=== PATIENT | female | born 1975 | race Caucasian/White ===

== ENCOUNTER → 2016-11-15 | Outpatient (CLI) | payer OTHER ==
[~2016-11-15] MED LIST: ACHD5005 PO; B12/1TAB3 PO; CALC300T4 PO; CETI10CA PO; CHOL400T43 PO; CINN500C2 PO; CYCL5TAB PO; ESTR-42 TD; ESTR-44 TD; ESTR1TAB27 PO; HYDR-3812 PO; IBUP-1780 PO; IBUP-30 PO; KRIL1CAP12 PO; LEVO75TA PO; LORA10TA7 PO; LVT.05T PO; METH4TAB PO; ONDA8TAB13 PO; PANT40TA PO; PANT40TA2 PO; PRD20T PO; PRM25T PO; SCR1T PO; SCR1T1 PO; SUCR1TAB36 PO; TRAM50TA2 PO; [UNRECOGNIZED DRUG - OTHER] PO
== END ==
LOC: RAD 14:43
PROVIDERS: ATTEND Obstetrics & Gynecology
DX: Z12.31 Encounter for screening mammogram for malignant neoplasm of breast (principal)
CPT/HCPCS: 77067

== ENCOUNTER → 2016-12-05 | Outpatient (CLI) | payer OTHER ==
--- NOTE | 2016-12-05 20:23 | Diagnostic Imaging Report ---
EXAMINATION: Ultrasound of the left breast. INDICATION: Abnormal mammogram. FINDINGS: The screening mammogram performed on 11/15/2016 noted a 6 mm oval asymmetry in the medial aspect of the left breast. The diagnostic mammogram performed earlier today indicated that this nodule had a generally benign appearance. It did appear to be located in the 11 o'clock position near the left breast implant. On this exam, there is a 0.7 x 0.6 x 0.7 cm fairly well-circumscribed hypoechoic lesion in this region. This does contain a small amount of vascularity and I suspect that this is solid. Most likely, this is a benign process. The possibility that this is malignant should still be considered, however. If a tissue diagnosis is desired, then an ultrasound-guided biopsy could be performed although it would be technically difficult due to the close proximity of the nodule to the implant. If further imaging is desired, then MRI will be recommended. If there is no intervention at this time and the MRI exam is not performed, then a short-term (three-month) follow-up ultrasound exam should be obtained. IMPRESSION: 1. There is a small hypoechoic nodule in the 11 o'clock position of the left breast near the implant. This finding does not have an aggressive appearance but is technically indeterminate. Recommendations as above. 2. These results were discussed with Dr. Alessandra Bagley. ACR BI-RADS Category 4: Suspicious abnormality. Dictated by: Dictated on workstation # [id number]
--- NOTE | 2016-12-07 07:21 | Diagnostic Imaging Report ---
EXAMINATION: Unilateral diagnostic left mammogram. INDICATION: Abnormal screening mammogram The current study was also evaluated with a Computer Aided Detection (CAD) system. The recent screening mammogram of 11/15/16 noted a 6 MM oval asymmetry in the medial posterior aspect of the breast. Compression views of this area show that the density in question still persist. In reviewing the tomographic images I suspect that this finding is in the 11 o'clock position. This density has a generally benign appearance. Even so, I would recommend that ultrasound be performed for further study. IMPRESSION: The nodular density in the 11 o'clock position of the left breast has a generally benign appearance. Ultrasound would be recommended to better characterize this finding. ACR BI-RADS Category 0: Incomplete. (Needs additional imaging evaluation). Result letter will be mailed to the patient. Note: At least 10% of breast cancer is not imaged by mammography. Dictated by: Dictated on workstation # [id number]
== END ==
LOC: RAD 12:31
PROVIDERS: ATTEND Obstetrics & Gynecology
DX: N63 Unspecified lump in breast (principal); Z98.82 Breast implant status
CPT/HCPCS: 76642

== ENCOUNTER → 2016-12-24 | Outpatient (CLI) | payer OTHER ==
[~2016-12-24] VITALS: Ht 170.2 cm; Wt 93.0 kg
[~2016-12-24] MED LIST changes: +LIDOCAINE 1% INJ 20 ML (XYLOCAINE) VIAL INJ ONE; +LIDOCAINE 1% INJ 20 ML (XYLOCAINE) VIAL ONE
[2016-12-24 11:02] VITALS: BP 130/81
--- NOTE | 2016-12-24 11:14 | Diagnostic Imaging Report ---
EXAMINATION: Vacuum-assisted ultrasound-guided biopsy of breast mass left. A metallic clip placed to caryn biopsy site. INDICATION: Left breast mass. CONSENT: Informed consent was obtained from the patient. The risks, benefits, potential complications and alternatives were reviewed and all questions answered to the patient's satisfaction. FINDINGS: Ultrasound images demonstrate left breast mass at 11:00 zone, 6 CM from the nipple. PROCEDURE: After sterile preparation and draping, 1% lidocaine was utilized for local anesthesia. A vacuum-assisted biopsy device with 14-gauge needle was introduced under live ultrasound guidance into the lesion. Good needle position was documented with ultrasound images. A metallic clip was placed to caryn the site of the biopsy. A subsequent mammogram is performed and confirms the proper positioning of the clip. Multiple samples were obtained and sent to pathology. The patient tolerated the procedure well with no immediate complications. IMPRESSION: Successful ultrasound-guided biopsy of left breast mass at 11:00 zone. A metallic clip placed to caryn biopsy site. Dictated by: Dictated on workstation # [id number]
--- NOTE | 2016-12-25 13:59 | Diagnostic Imaging Report ---
EXAMINATION: CC and lateral mammographic views of the left breast were performed with implant displaced technique. INDICATION: Documentation of clip position after ultrasound-guided biopsy. FINDINGS: The clip position is documented in the medial superior aspect of the left breast matching the site of nodule seen on the prior mammogram and the previously seen nodule is not well seen, probably related to biopsy changes. IMPRESSION: Satisfactory clip position marking the biopsy site of the medial upper left breast nodule. The Pathology results are pending. Dictated by: Dictated on workstation # [id number]
== END ==
LOC: RAD 09:48
PROVIDERS: ATTEND Obstetrics & Gynecology
DX: N63 Unspecified lump in breast (principal)
CPT/HCPCS: 19083

== ENCOUNTER → 2018-07-21 | Outpatient (CLI) | payer OTHER ==
[~2018-07-21] MED LIST changes: -HYDR-3812 PO; -LIDOCAINE 1% INJ 20 ML (XYLOCAINE) VIAL INJ ONE; -LIDOCAINE 1% INJ 20 ML (XYLOCAINE) VIAL ONE
[2018-07-21 09:39] LABS: HEMOGLOBIN 12.5 G/DL (11.5-16.0); WHITE BLOOD COUNT 11.8 10^3/uL (4.3-11.0)
[2018-07-21 09:40] LABS: MEAN PLATELET VOLUME 8.6 FL (7.4-10.4); RED CELL DISTRIBUTION WIDTH 12.8 % (10.0-14.5)
[2018-07-21 09:42] LABS: ALKALINE PHOSPHATASE 100 U/L (40-136); BILIRUBIN,TOTAL 0.4 MG/DL (0.1-1.0); BUN/CREATININE RATIO 14; CALCIUM 8.7 MG/DL (8.5-10.1); CARBON DIOXIDE 22 MMOL/L (21-32); CHLORIDE 100 MMOL/L (98-107); CREATININE SERUM 0.59 MG/DL (0.60-1.30); GFR ESTIMATED > 60; GLUCOSE 115 MG/DL (70-105); SODIUM 139 MMOL/L (135-145)
[2018-07-21 09:43] LABS: ALANINE AMINOTRANSFERASE 15 U/L (0-55); ALBUMIN 3.9 GM/DL (3.2-4.5); TOTAL PROTEIN 7.1 GM/DL (6.4-8.2)
[2018-07-21 10:15] LABS: FREE T4 (FREE THYROXINE) 1.28 NG/DL (0.70-1.48)
== END ==
LOC: LAB FS 08:13
PROVIDERS: ATTEND Family Medicine
DX: Z00.00 Encounter for general adult medical examination without abnormal findings (principal); E03.9 Hypothyroidism, unspecified; E78.2 Mixed hyperlipidemia
CPT/HCPCS: 36415; 80053; 80061; 83036; 84439; 84443; 85027

== ENCOUNTER 2018-12-24 05:48 | Outpatient (CLI) | payer OTHER ==
[~2018-12-24] VITALS: Ht 170.2 cm; Wt 96.6 kg
[2018-12-24] MEDS ORDERED: PANT40TA3 PO (09:14)
[2018-12-24] MEDS ORDERED: ESTR1TAB24 PO (09:14)
[2018-12-24] MEDS ORDERED: LEVO100T7 PO (09:14)
[2018-12-24] MEDS ORDERED: SUCR1TAB PO (09:14)
[2018-12-24] MEDS ORDERED: ATOR10TA66 PO (09:14)
[2018-12-24] MEDS ORDERED: HYDR-700 PO (09:14)
== END 2018-12-24 09:15 | disposition home or self-care (01) ==
LOC: PREOP 05:48
PROVIDERS: ATTEND Surgery
DX: Z01.818 Encounter for other preprocedural examination (principal)

== ENCOUNTER → 2019-01-27 | Outpatient (CLI) | payer OTHER ==
[~2019-01-27] MED LIST changes: +ATOR10TA66 PO; +ESTR1TAB24 PO; +HYDR-700 PO; +LEVO100T7 PO; +PANT40TA3 PO; +SUCR1TAB PO
--- NOTE | 2019-01-27 16:10 | Diagnostic Imaging Report ---
PROCEDURE: CT abdomen and pelvis without contrast. TECHNIQUE: Multiple contiguous axial images were obtained through the abdomen and pelvis without the use of intravenous contrast. Auto Exposure Controls were utilized during the CT exam to meet ALARA standards for radiation dose reduction. INDICATION: Mid and upper abdominal pain. COMPARISON: Correlation is made with prior CT from 02/17/2015. FINDINGS: The lung bases are clear. Liver parenchymal heterogeneity is again noted. There is an area of low density in the anterior portion of the liver adjacent to falciform ligament, not definitely seen on prior exam. This area measures 12 mm. Mass cannot be entirely excluded. No other liver lesions are seen. Gallbladder is surgically absent. No biliary ductal dilatation is identified. Pancreas and spleen are unremarkable. No adrenal mass is detected. No renal calculi or hydronephrosis is identified. Aorta is non-aneurysmal. Small and large bowel loops are normal caliber. There is no obstruction. Appendix is visualized and unremarkable. There is mild diverticulosis of the sigmoid but no evidence of acute diverticulitis. No free fluid or loculated fluid collection is identified. Bladder is decompressed. Uterus is absent or atrophic. IMPRESSION: 1. Liver parenchymal heterogeneity. There is a 12 mm low density in the anterior liver, segment 4B that has developed since prior CT from 2014. Further evaluation with postcontrast imaging versus liver ultrasound or liver MRI would be recommended for better characterization. 2. Otherwise unremarkable CT of the abdomen and pelvis. No acute feature is seen. There is uncomplicated diverticulosis. Dictated by: Dictated on workstation # [id number]
[2019-01-27 16:20] LABS: ALANINE AMINOTRANSFERASE 18 U/L (0-55); ALBUMIN 3.9 GM/DL (3.2-4.5); ALKALINE PHOSPHATASE 103 U/L (40-136); AMYLASE 46 U/L (25-125); BILIRUBIN,TOTAL 0.5 MG/DL (0.1-1.0); BUN/CREATININE RATIO 12; CALCIUM 9.1 MG/DL (8.5-10.1); CARBON DIOXIDE 25 MMOL/L (21-32); CHLORIDE 101 MMOL/L (98-107); CREATININE SERUM 0.69 MG/DL (0.60-1.30); GFR ESTIMATED > 60; GLUCOSE 95 MG/DL (70-105); LIPASE 15 U/L (8-78); POTASSIUM 3.7 MMOL/L (3.6-5.0); SODIUM 138 MMOL/L (135-145); TOTAL PROTEIN 7.4 GM/DL (6.4-8.2)
== END ==
LOC: RAD 15:36
PROVIDERS: ATTEND Family Medicine
DX: K57.30 Diverticulosis of large intestine without perforation or abscess without bleeding (principal); K76.89 Other specified diseases of liver
CPT/HCPCS: 36415; 74176; 80053; 82150; 83690

== ENCOUNTER → 2019-02-01 | Outpatient (CLI) | payer OTHER ==
--- NOTE | 2019-02-01 08:54 | Diagnostic Imaging Report ---
PROCEDURE: US Hepatic (Liver). TECHNIQUE: Multiple real-time grayscale images were obtained over the right upper quadrant in various projections. INDICATION: Liver lesion seen on CT Comparison made to prior CT abdomen 01/27/2019 FINDINGS: The liver measures 19.8 cm and is diffusely heterogeneous. The previously described hypodense lesion on CT is not appreciated by ultrasound. Gallbladder surgically absent. Common bile duct measures 5 mm. Pancreas is obscured by gas. Right kidney normal. There is no ascites. IMPRESSION: The previously seen liver lesion on CT was not appreciated by ultrasound. There is mild hepatomegaly, liver somewhat heterogeneous. There has also been previous cholecystectomy. Otherwise unremarkable right upper quadrant ultrasound Dictated by: Dictated on workstation # [id number]
== END ==
LOC: RAD 07:56
PROVIDERS: ATTEND Family Medicine
DX: K76.9 Liver disease, unspecified (principal); Z90.49 Acquired absence of other specified parts of digestive tract
CPT/HCPCS: 76705

== ENCOUNTER → 2019-02-15 | Outpatient (CLI) | payer OTHER | LOC: CARD 16:14 | PROVIDERS: ATTEND Nurse Practitioner Family | DX: R07.9 Chest pain, unspecified (principal) | CPT/HCPCS: 93005 ==

== ENCOUNTER → 2019-02-22 | Outpatient (CLI) | payer OTHER ==
--- NOTE | 2019-02-22 09:49 | Diagnostic Imaging Report ---
INDICATION: Hypertension. FINDINGS: The right kidney measures 12.6 x 4.4 x 5.2 cm and the left kidney measures 13.3 x 5.3 x 5.6 cm. The cortical thickness and echogenicity is normal. No calculi are identified. There is no hydronephrosis. Urinary bladder is unremarkable. No wall thickening or mass is seen. Ureteral jets are visualized. Renal Doppler evaluation was also performed. The proximal, mid and distal renal artery velocities are normal bilaterally. Renal artery to aorta ratios are normal bilaterally. No velocity elevation is identified. There is no evidence of tardus parvus waveforms to suggest renal artery stenosis. IMPRESSION: Unremarkable renal ultrasound with renal Doppler. No sonographic findings to suggest renal artery stenosis are identified. Dictated by: Dictated on workstation # [id number]
== END ==
LOC: RAD 08:02
PROVIDERS: ATTEND Family Medicine
DX: I10 Essential (primary) hypertension (principal); R31.9 Hematuria, unspecified
CPT/HCPCS: 76770; 93975

== ENCOUNTER → 2020-04-17 | Outpatient (CLI) | payer OTHER ==
[~2020-04-17] MED LIST changes: -PANT40TA3 PO; +PANT40TA52 PO
[2020-04-17 09:07] LABS: WHITE BLOOD COUNT 12.4 10^3/uL (4.3-11.0)
[2020-04-17 09:08] LABS: MEAN PLATELET VOLUME 8.6 FL (7.4-10.4)
[2020-04-17 09:27] LABS: ALANINE AMINOTRANSFERASE 14 U/L (0-55); ALKALINE PHOSPHATASE 107 U/L (40-136); BILIRUBIN,TOTAL 0.3 MG/DL (0.1-1.0); BUN/CREATININE RATIO 17; CALCIUM 9.4 MG/DL (8.5-10.1); CARBON DIOXIDE 26 MMOL/L (21-32); CHLORIDE 100 MMOL/L (98-107); CREATININE SERUM 0.65 MG/DL (0.60-1.30); GFR ESTIMATED > 60; GLUCOSE 109 MG/DL (70-105); POTASSIUM 4.2 MMOL/L (3.6-5.0); SODIUM 136 MMOL/L (135-145); TOTAL PROTEIN 7.4 GM/DL (6.4-8.2)
[2020-04-17 15:06] LABS: CHOLESTEROL 185 MG/DL (< 200); HDL CHOLESTEROL 56 MG/DL (40-60); TRIGLYCERIDES 260 MG/DL (<150); VLDL CHOLESTEROL 52 MG/DL (5-40)
[2020-04-17 15:29] LABS: FREE T4 (FREE THYROXINE) 1.09 NG/DL (0.70-1.48)
== END ==
LOC: LAB FS 08:02
PROVIDERS: ATTEND Family Medicine
DX: Z00.00 Encounter for general adult medical examination without abnormal findings (principal); E78.5 Hyperlipidemia, unspecified; E03.9 Hypothyroidism, unspecified
CPT/HCPCS: 36415; 80053; 80061; 84439; 84443; 85027

== ENCOUNTER → 2021-01-04 | Outpatient (CLI) | payer OTHER ==
--- NOTE | 2021-01-04 18:10 | Diagnostic Imaging Report ---
PROCEDURE: US Thyroid. TECHNIQUE: Multiple real-time grayscale images were obtained of the thyroid in various projections. INDICATION: Dysphagia. COMPARISON: None available. FINDINGS: Right thyroid lobe: The right thyroid lobe measures 4.1 x 1.4 x 1.2 cm. It has a background of homogeneous echogenicity and normal vascularity. In the lower pole, there is an isoechoic solid nodule with circumscribed margins measuring 0.4 x 0.3 x 0.4 cm, and this is wider than tall and has no echogenic foci (TI-RADS 3). Isthmus: The thyroid isthmus measures 0.2 cm. Left thyroid lobe: The left thyroid lobe measures 3.2 x 1.4 x 0.9 cm. A solid hyperechoic nodule in the lower pole is wider than tall measuring 0.3 x 0.2 x 0.3 cm (TI-RADS 3). IMPRESSION: 1. Bilateral tiny thyroid nodules are mildly suspicious. Given small size, consider follow-up thyroid ultrasound in one year. 2. The thyroid is not enlarged. ACR TI-RADS: TR3 . TI-RADS Recommendations:TR3 - Mildly Suspicious. FNA if > 2.5 cm. Follow if > 1.5 cm at 1, 3, 5 years. Dictated by: Dictated on workstation # [id number]
== END ==
LOC: RAD FS 11:47
PROVIDERS: ATTEND Family Medicine
DX: E04.2 Nontoxic multinodular goiter (principal)
CPT/HCPCS: 76536

== ENCOUNTER → 2021-02-26 | Outpatient (CLI) | payer OTHER | LOC: LAB FS 10:51 | PROVIDERS: ATTEND Emergency Medicine | DX: Z01.812 Encounter for preprocedural laboratory examination (principal); Z20.822 Contact with and (suspected) exposure to COVID-19 | CPT/HCPCS: 87635 ==

== ENCOUNTER → 2021-07-20 | Outpatient (CLI) | payer OTHER ==
[2021-07-20 17:22] LABS: POTASSIUM 3.7 MMOL/L (3.6-5.0)
[2021-07-20 17:23] LABS: ALBUMIN 4.1 GM/DL (3.2-4.5); BILIRUBIN,TOTAL 0.3 MG/DL (0.1-1.0); CALCIUM 9.2 MG/DL (8.5-10.1); CREATININE SERUM 0.55 MG/DL (0.60-1.30); TOTAL PROTEIN 7.1 GM/DL (6.4-8.2)
[2021-07-21 01:26] LABS: FREE T4 (FREE THYROXINE) 1.21 NG/DL (0.70-1.48)
== END ==
LOC: LAB FS 16:32
PROVIDERS: ATTEND Family Medicine
DX: E03.9 Hypothyroidism, unspecified (principal); E78.2 Mixed hyperlipidemia
CPT/HCPCS: 36415; 80053; 80061; 84439; 84443

== ENCOUNTER 2022-01-15 19:10 | Emergency (ER) | payer OTHER ==
[~2022-01-15] VITALS: Ht 170.2 cm; Wt 100.7 kg
--- NOTE | 2022-01-15 19:40 | ED Headache ---
General Chief Complaint: Head/Cervical Problems Stated Complaint: MIGRAINE,STREP THROAT,PRESSURE ON R SIDE OF FACE Nursing Triage Note: PT AMB TO RM 2 W C/O BENITEZ/MIGRAINE, DIZZINESS, NAUSEA & VOMITING, AND DECREASED APPETITE SX 0300 THIS AM. PT WAS DX W STREP THROAT ON 01/09/22. PT A&OX4, REPORTS SHE WENT TO [facility] AT 1600 TODAY AND WAS GIVEN ZOFRAN AND ADVISED TO GO TO ED FOR FURTHER EVALUATION AND TX. Source: patient Exam Limitations: no limitations History of Present Illness Date Seen by Provider: Jan 15, 2022 Time Seen by Provider: 19:40 Initial Comments This is a 46 yo female who presented to the ER via POV with c/o right sided face pain, pressure, migraine headache, dizziness, and persistent vomiting. She was diagnosed last week with strep throat and prescribed amoxicillin, her throat is much improved, and she still has doses of Amoxicillin but she has been able to take due to persistent vomiting today. She does have a history of migraine headaches, typically has a migraine daily, worse with activity. States has been unable to take her medication due to vomiting. She presented to urgent care at [facility] around 1600 today, was given Zofran and recommended to go to ER for further evaluation. Allergies and Home Medications Allergies Coded Allergies: Sulfa (Sulfonamide Antibiotics) (Verified Allergy, Unknown, EDEMA, 03/21/15) Patient Home Medication List Home Medication List Reviewed: Yes Amoxicillin/Potassium Clav (Amox Tr-K Clv 875-125 mg Tab) 875 Mg-125 Mg Tablet, 875 EACH PO BID Prescribed by: ETELVINA IYER on 01/15/222057 Atorvastatin Calcium (Atorvastatin Calcium) 10 Mg Tablet, 10 MG PO HS, (Reported) Entered as Reported by: ANT RESTREPO on 12/24/18913 Estradiol (Estradiol Tablet) 1 Mg Tablet, 1 MG PO DAILY, (Reported) Entered as Reported by: ANT RESTREPO on 12/24/18913 Hydroxyzine HCl (Hydroxyzine HCl) 25 Mg Tablet, 25 MG PO HS, (Reported) Entered as Reported by: ANT RESTREPO on 12/24/18913 Ibuprofen (Advil) 200 Mg Tablet, 400 MG PO Q8H PRN for PAIN, (Reported) Entered as Reported by: JASVIR BANUELOS on 01/17/16824 Ketorolac Tromethamine (Ketorolac Tromethamine) 10 Mg Tablet, 10 MG PO Q6H PRN for PAIN-BREAKTHROUGH Prescribed by: ETELVINA IYER on 01/15/222057 Levothyroxine Sodium (Levothyroxine Sodium) 100 Mcg Tablet, 100 MCG PO DAILY, (Reported) Entered as Reported by: ANT RESTREPO on 12/24/18913 Ondansetron (Ondansetron Odt) 4 Mg Tab.rapdis, 4 MG PO Q6H PRN for NAUSEA/VOMITING Prescribed by: ETELVINA IYER on 01/15/222057 Pantoprazole Sodium (Pantoprazole Sodium) 40 Mg Tablet.dr, 40 MG PO BID, (Reported) Entered as Reported by: ANT RESTREPO on 12/24/18913 Sucralfate (Sucralfate) 1 Gm Tablet, 1 GM PO ACHS, (Reported) Entered as Reported by: ANT RESTREPO on 12/24/18913 Review of Systems Review of Systems Constitutional: see HPI Past Dmcsbjb-Andzcj-Nxksmu Hx Patient Social History Tobacco Use?: No Use of E-Cig and/or Vaping dev: No Substance use?: No Alcohol Use?: No Immunizations Up To Date Influenza Vaccine Up-to-Date: No; Not Current First/Initial COVID19 Vaccinat: 2020 Second COVID19 Vaccination José Miguel: 2020 Third COVID19 Vaccination Date: 2021 COVID19 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 [employer] Seasonal Allergies Seasonal Allergies: No Past Medical History Surgeries: Yes (breast lumpectomy, BREAST AUGMENTATION) Breast, Gallbladder, Hysterectomy, Tubal Ligation Respiratory: No Cardiac: Yes High Cholesterol Neurological: No Reproductive Disorders: No [employer] History: Hysterectomy Genitourinary: No Gastrointestinal: Yes (+blood in stools) Gastroesophageal Reflux Musculoskeletal: No Endocrine: Yes Hypothyroidsim HEENT: No Cancer: No Psychosocial: No Integumentary: No Blood Disorders: No Adverse Reaction/Blood Tranf: No Family Medical History Family history: Diabetes mellitus 03 FATHER 03 MOTHER maternal grandfather, Onset:50's - 60 Family history: Hypertension maternal grandfather, Onset:50's - 60 Malignant neoplasm of lung 03 FATHER maternal grandmother, Onset:69 Stroke maternal grandfather, Onset:60 years & older No Family History of: Abdominal aortic aneurysm Columbia's disease Alcoholism Aphasia Cancer Cancer of colon Cataract Chest pain Congenital heart disease Congestive heart failure Cystic fibrosis Dementia Dysphagia Family history: Allergy Family history: Alzheimer's disease Family history: Arthritis Family history: Asthma Family history: Breast disease Family history: Cardiovascular disease Family history: Coronary thrombosis Family history: Gastrointestinal disease Family history: Glaucoma Family history: Osteoporosis Family history: Thyroid disorder Headache Hearing loss Heart disease Hereditary disease History of - anemia History of - disorder History of - respiratory disease History of drug abuse Human immunodeficiency virus (HIV) seropositivity Hypercholesterolemia Infertile Kidney disease Myocardial infarction Parkinson's disease Prostate cancer Psychotic disorder Seizure disorder Tuberculosis Visual impairment No Pertinent Family Hx Physical Exam Vital Signs Vital Signs - First Documented 01/15/22 19:15 Temp 36.7 Pulse 90 Resp 20 B/P (MAP) 192/101 (131) Pulse Ox 97 O2 Delivery Room Air Capillary Refill : Less Than 3 Seconds Height, Weight, BMI Height: 5'7.00" Weight: 213lbs. 0.0oz. 96.134916vw; 34.00 BMI Method:Estimated General Appearance: WD/WN, no apparent distress HEENT: PERRL/EOMI, normal ENT inspection, TMs normal, pharynx normal Neck: full range of motion, normal inspection Cardiovascular: regular rate, rhythm, no murmur Respiratory: lungs clear, normal breath sounds, no respiratory distress, no accessory muscle use Gastrointestinal: normal bowel sounds, non tender, soft Back: normal inspection Extremities: normal range of motion, non-tender, normal inspection Psychiatric: alert, oriented x 3 Crainal Nerves: normal hearing, normal speech, PERRL; No abnormal eye position, No abnormal pupil position Coordination/Gait: normal gait Motor/Sensory: no motor deficit, no sensory deficit, no pronator drift Skin: normal color, warm/dry Progress/Results/Core Measures Results/Orders Lab Results Laboratory Tests Test 01/15/22 20:06 Range/Units White Blood Count 14.6 H 4.3-11.0 10^3/uL Red Blood Count 4.84 3.80-5.11 10^6/uL Hemoglobin 13.4 11.5-16.0 g/dL Hematocrit 40 35-52 % Mean Corpuscular Volume 83 80-99 fL Mean Corpuscular Hemoglobin 28 25-34 pg Mean Corpuscular Hemoglobin Concent 33 32-36 g/dL Red Cell Distribution Width 12.7 10.0-14.5 % Platelet Count 444 H 130-400 10^3/uL Mean Platelet Volume 8.7 L 9.0-12.2 fL Immature Granulocyte % (Auto) 0 % Neutrophils (%) (Auto) 66 42-75 % Lymphocytes (%) (Auto) 27 12-44 % Monocytes (%) (Auto) 4 0-12 % Eosinophils (%) (Auto) 2 0-10 % Basophils (%) (Auto) 1 0-10 % Neutrophils # (Auto) 9.7 H 1.8-7.8 10^3/uL Lymphocytes # (Auto) 3.9 1.0-4.0 10^3/uL Monocytes # (Auto) 0.6 0.0-1.0 10^3/uL Eosinophils # (Auto) 0.3 0.0-0.3 10^3/uL Basophils # (Auto) 0.1 0.0-0.1 10^3/uL Immature Granulocyte # (Auto) 0.0 0.0-0.1 10^3/uL Neutrophils % (Manual) 73 % Lymphocytes % (Manual) 15 % Monocytes % (Manual) 10 % Eosinophils % (Manual) 2 % Blood Morphology Comment NORMAL Erythrocyte Sedimentation Rate 13 0-20 MM/HR Sodium Level 139 135-145 MMOL/L Potassium Level 4.0 3.6-5.0 MMOL/L Chloride Level 104 98-107 MMOL/L Carbon Dioxide Level 22 21-32 MMOL/L Anion Gap 13 5-14 MMOL/L Blood Urea Nitrogen 8 7-18 MG/DL Creatinine 0.70 0.60-1.30 MG/DL Estimat Glomerular Filtration Rate 109 BUN/Creatinine Ratio 11 Glucose Level 109 H 70-105 MG/DL Calcium Level 9.6 8.5-10.1 MG/DL Corrected Calcium 9.5 8.5-10.1 MG/DL Total Bilirubin 0.5 0.1-1.0 MG/DL Aspartate Amino Transf (AST/SGOT) 17 5-34 U/L Alanine Aminotransferase (ALT/SGPT) 21 0-55 U/L Alkaline Phosphatase 90 40-136 U/L C-Reactive Protein High Sensitivity 1.48 H 0.00-0.50 MG/DL Total Protein 7.5 6.4-8.2 GM/DL Albumin 4.1 3.2-4.5 GM/DL Procalcitonin 0.04 <0.10 NG/ML My Orders Orders - ETELVINA IYER AWS CONSULTANT Cbc With Automated Diff (01/15/22 19:32) Comprehensive Metabolic Panel (01/15/22 19:32) Hs C Reactive Protein (01/15/22 19:32) Ed Iv/Invasive Line Start (01/15/22 19:32) Ct Maxillofacial W (01/15/22 19:32) Ct Head W Wo (01/15/22 19:32) Erythrocyte Sedimentation Rate (01/15/22 19:32) Procalcitonin (Pct) (01/15/22 19:32) Ketorolac Injection (Toradol Injection) (01/15/22 19:45) Ns Iv 1000 Ml (Sodium Chloride 0.9%) (01/15/22 19:45) Promethazine Injection (Phenergan Injec (01/15/22 19:45) Iohexol Injection (Omnipaque 350 Mg/Ml 1 (01/15/22 20:00) Di Iv Start (Assessment) .IV start (01/15/22 19:50) Received Contrast (Hold Metformin- Contr (01/15/22 20:00) Ns (Ivpb) (Sodium Chloride 0.9% Ivpb Bag (01/15/22 20:00) Manual Differential (01/15/22 20:06) Rx-Ondansetron Po (Rx-Zofran Po) (01/15/22 20:53) Amoxicillin/Clavulanate Tablet (Augmenti (01/15/22 21:00) Rx-Ondansetron Po (Rx-Zofran Po) (01/15/22 21:06) Amoxicillin/Clavulanate Tablet (Augmenti (01/15/22 21:06) Medications Given in ED Vital Signs/I&O 01/15/22 01/15/22 19:15 21:15 Temp 36.7 Pulse 90 87 Resp 20 20 B/P (MAP) 192/101 (131) 159/111 Pulse Ox 97 99 O2 Delivery Room Air Room Air Blood Pressure Mean: 131 Progress Progress Note : Progress Note Patient examined and no acute distress. GCS-15. No focal or gross neurological deficits. Diagnostic Imaging Diagonstic Imaging: CT Comments [facility], [place] NAME: CHRIS GONSALES [facility] REC#: [id number] PT STATUS: [facility] ER : 1975 PHYSICIAN: ETELVINA IYER APRN ADMIT DATE: 01/15/22/ER Signed Date of Exam:01/15/22 CT HEAD W WO PROCEDURE: CT head with and without contrast. TECHNIQUE: Multiple contiguous axial images were obtained through the brain before and after the administration of intravenous contrast. Auto Exposure Controls were utilized during the CT exam to meet ALARA standards for radiation dose reduction. INDICATION: Headache. Migraine. Dizziness. Vomiting. COMPARISON: None. FINDINGS: No intracranial hemorrhage, mass effect, hydrocephalus or extra-axial fluid collections. No CT evidence of a territorial infarction. No abnormal intracranial enhancement. Osseous structures are intact. Mucosal thickening in the partially visualized right maxillary sinus. The mastoids are clear. IMPRESSION: 1. No acute intracanal CT findings. No abnormal intracranial enhancement. 2. Mild mucosal thickening in the partially visualized right maxillary sinus. Dictated by: Dictated on workstation # [id number] Dict: 01/15/222027 Trans: 01/15/222318 [id number] Interpreted by: KELLEY SEGUNDO MD Electronically signed by: KELLEY SEGUNDO MD 01/15/222318 Comments [facility], [place] NAME: CHRIS GONSALES [facility] REC#: [id number] PT STATUS: [facility] ER : 1975 PHYSICIAN: ETELVINA IYER AWS CONSULTANT ADMIT DATE: 01/15/22/ER Signed Date of Exam:01/15/22 CT MAXILLOFACIAL W PROCEDURE: CT maxillofacial with contrast. TECHNIQUE: After intravenous administration of contrast, axial images were obtained through the face and reformatted into coronal and sagittal planes. Auto Exposure Controls were utilized during the CT exam to meet ALARA standards for radiation dose reduction. INDICATION: Right mastoid tenderness. COMPARISON: CT head without and with IV contrast also performed today. FINDINGS: The mastoids are clear. Mild mucosal thickening in the sphenoid, ethmoid, right frontal, and right maxillary sinuses. No air-fluid levels. No suspicious mass or enhancement. The orbits are negative. Visualized intracranial contents are unremarkable. No maxillofacial fractures. Normal alignment of the temporomandibular joints. IMPRESSION: 1. Mild paranasal sinus disease as above. 2. The mastoids are clear. Dictated by: Dictated on workstation # [id number] Dict: 01/15/222029 Trans: 01/15/222318 [id number] Interpreted by: KELLEY SEGUNDO MD Electronically signed by: KELLEY SEGUNDO MD 01/15/222318 Reviewed: Reviewed by Me Departure Impression Primary Impression: Sinusitis Additional Impressions: Migraine Nausea and vomiting Disposition: HOME, SELF-CARE Condition: Improved Departure-Patient Inst. Decision time for Depature: 20:55 Referrals: ANDRES LUI DO (PCP/Family) Primary Care Physician Patient Instructions: Sinusitis, Adult ED Add. Discharge Instructions: Plan: 1. Stop your Ibuprofen and take Toradol 10mg by mouth every 6 hours as needed for pain. 2. Stop your Amoxicillin and start Augmentin 875mg by mouth twice a day. 3. Take Zofran 4mg by mouth every 6 hours as needed for nausea, vomiting. Take 30 minutes before food. 4. Have close follow up with Dr. Lui regarding frequency of your migraines. 5. Return to ER for any new, concerning, or worsening symptoms. All discharge instructions reviewed with patient and/or family. Voiced understanding. Scripts Ondansetron (Ondansetron Odt) 4 Mg Tab.rapdis 4 MG PO Q6H PRN for NAUSEA/VOMITING, #20 TAB 0 Refills Prov: ETELVINA IYER AWS CONSULTANT 01/15/22 Amoxicillin/Potassium Clav (Amox Tr-K Clv 875-125 mg Tab) 875 Mg-125 Mg Tablet 875 EACH PO BID for 7 Days, #13 TAB 0 Refills Prov: ETELVINA IYER AWS CONSULTANT 01/15/22 Ketorolac Tromethamine (Ketorolac Tromethamine) 10 Mg Tablet 10 MG PO Q6H PRN for PAIN-BREAKTHROUGH, #20 TAB 0 Refills Prov: ETELVINA IYER APRN 01/15/22 Copy Copies To 1: ANDRES LUI STORMY D AWS CONSULTANT Jan 15, 2022 19:40
[2022-01-15] MEDS ORDERED: PROMETHAZINE INJ 25 MG/ML (PHENERGAN) AMP IVP ONE (19:45)
[2022-01-15] MEDS ORDERED: NS IV 1000 ML 1,000 ML IV ONE (19:45)
[2022-01-15] MEDS ORDERED: KETOROLAC 30 MG/ML VIAL IVP ONE (19:45)
[2022-01-15] MEDS ORDERED: HOLD METFORMIN - RECEIVED CONTRAST 20 ML VIAL IV SCH (20:00)
[2022-01-15] MEDS ORDERED: NS 100 ML (IVPB) BAG IV ONE (20:00)
[2022-01-15 20:11] LABS: BASOPHILS # (AUTO) 0.1 10^3/uL (0.0-0.1); BASOPHILS % (AUTO) 1 % (0-10); EOSINOPHILS # (AUTO) 0.3 10^3/uL (0.0-0.3); EOSINOPHILS % (AUTO) 2 % (0-10); HEMATOCRIT 40 % (35-52); HEMOGLOBIN 13.4 g/dL (11.5-16.0); LYMPHOCYTES # (AUTO) 3.9 10^3/uL (1.0-4.0); LYMPHOCYTES % (AUTO) 27 % (12-44); MEAN CORPUSCULAR HEMOGLOBIN 28 pg (25-34); MEAN CORPUSCULAR HGB CONC 33 g/dL (32-36); MEAN CORPUSCULAR VOLUME 83 fL (80-99); MEAN PLATELET VOLUME 8.7 fL (9.0-12.2); MONOCYTES # (AUTO) 0.6 10^3/uL (0.0-1.0); MONOCYTES % (AUTO) 4 % (0-12); NEUTROPHILS # (AUTO) 9.7 10^3/uL (1.8-7.8); NEUTROPHILS % (AUTO) 66 % (42-75); PLATELET COUNT 444 10^3/uL (130-400); WHITE BLOOD COUNT 14.6 10^3/uL (4.3-11.0)
[2022-01-15] MEDS: IOHEXOL 350 MG/ML 100 ML (OMNIPAQUE 350) VIAL IV ONE ×2 (20:12→21:01)
--- NOTE | 2022-01-15 20:31 | Diagnostic Imaging Report ---
PROCEDURE: CT head with and without contrast. TECHNIQUE: Multiple contiguous axial images were obtained through the brain before and after the administration of intravenous contrast. Auto Exposure Controls were utilized during the CT exam to meet ALARA standards for radiation dose reduction. INDICATION: Headache. Migraine. Dizziness. Vomiting. COMPARISON: None. FINDINGS: No intracranial hemorrhage, mass effect, hydrocephalus or extra-axial fluid collections. No CT evidence of a territorial infarction. No abnormal intracranial enhancement. Osseous structures are intact. Mucosal thickening in the partially visualized right maxillary sinus. The mastoids are clear. IMPRESSION: 1. No acute intracanal CT findings. No abnormal intracranial enhancement. 2. Mild mucosal thickening in the partially visualized right maxillary sinus. Dictated by: Dictated on workstation # [id number]
[2022-01-15 20:32] LABS: EOSINOPHILS % (MANUAL) 2 %; ERYTHROCYTE SEDIMENTATION RATE 13 MM/HR (0-20); LYMPHOCYTES % (MANUAL) 15 %; MONOCYTES % (MANUAL) 10 %; NEUTROPHILS % (MANUAL) 73 %; RBC MORPH NORMAL
--- NOTE | 2022-01-15 20:34 | Diagnostic Imaging Report ---
PROCEDURE: CT maxillofacial with contrast. TECHNIQUE: After intravenous administration of contrast, axial images were obtained through the face and reformatted into coronal and sagittal planes. Auto Exposure Controls were utilized during the CT exam to meet ALARA standards for radiation dose reduction. INDICATION: Right mastoid tenderness. COMPARISON: CT head without and with IV contrast also performed today. FINDINGS: The mastoids are clear. Mild mucosal thickening in the sphenoid, ethmoid, right frontal, and right maxillary sinuses. No air-fluid levels. No suspicious mass or enhancement. The orbits are negative. Visualized intracranial contents are unremarkable. No maxillofacial fractures. Normal alignment of the temporomandibular joints. IMPRESSION: 1. Mild paranasal sinus disease as above. 2. The mastoids are clear. Dictated by: Dictated on workstation # [id number]
[2022-01-15 20:36] LABS: ALBUMIN 4.1 GM/DL (3.2-4.5); BILIRUBIN,TOTAL 0.5 MG/DL (0.1-1.0); CALCIUM 9.6 MG/DL (8.5-10.1); CREATININE SERUM 0.7 MG/DL (0.60-1.30); TOTAL PROTEIN 7.5 GM/DL (6.4-8.2)
[2022-01-15] MEDS ORDERED: RX-ONDANSETRON 4 MG ODT (ZOFRAN) PPK #4 PO STA (20:53)
[2022-01-15] MEDS ORDERED: AMOX1TAB12 PO (20:58)
[2022-01-15] MEDS ORDERED: KETO10TA PO (20:58)
[2022-01-15] MEDS ORDERED: ONDA4TAB11 PO (20:58)
[2022-01-15] MEDS ORDERED: AUGMENTIN 875 MG TAB (AMOXICILLIN/CLAVULANATE) PO ONE (21:00)
[2022-01-15] MEDS ORDERED: RX-ONDANSETRON 4 MG ODT (ZOFRAN) PPK #4 ONE (21:06)
[2022-01-15] MEDS ORDERED: AUGMENTIN 875 MG TAB (AMOXICILLIN/CLAVULANATE) ONE (21:06)
[2022-01-15 21:15] VITALS: BP 159/111
== END 2022-01-15 21:18 | disposition home or self-care (01) ==
LOC: EDUNIT# 19:10 → ER 19:12
DX: G43.909 Migraine, unspecified, not intractable, without status migrainosus (principal); J32.9 Chronic sinusitis, unspecified
CPT/HCPCS: 36415; 70470; 70487; 80053; 84145; 85007; 85027; 85652; 86141; 96361; 96374; 96375